=== PATIENT | female | born 1940 | race Caucasian/White ===

== ENCOUNTER → 2017-02-09 | Outpatient (CLI) | payer MEDICARE, BC ==
--- NOTE | 2017-02-11 06:05 | MRI ---
Procedure: MR LUMBAR SPINE WITHOUT IV CONTRAST Exam Date: 02/09/2017 12:00 AM CDT Ordering Provider: JOSE FRIEDMAN Clinical Indication: LOW BACK PAIN Comparison: March 26, 2014 Technique: Multiplanar, multisequence MR images of the lumbar spine were obtained. Findings: No evidence of vertebral body compression deformity or acute fracture. Stable moderate S-shaped scoliotic curvature. There is a dextroconvex apex at L1-L2 and levoconvex apex at L3-L4. Spinal cord terminates at the T12-L1 and is normal in signal morphology. Cauda equina separate appropriately. The spinal canal is congenitally widened secondary to scoliotic curvature. The pedicles are markedly developmentally thinned. T12-L1: Broad-based disc bulge without high-grade foraminal or spinal canal stenosis. L1-L2: Broad-based disc bulge asymmetric to the left. Left greater than right facet arthrosis. No high-grade spinal canal or foraminal stenosis. L2-L3: Broad-based disc bulge with marked facet arthrosis and ligamentum flavum hypertrophy. There is overall moderate spinal canal stenosis and bilateral subarticular recess stenosis. Severe left and mild right neural foraminal stenosis. L3-L4: Degenerative anterolisthesis secondary to facet arthrosis. Severe right and moderate left facet arthrosis and ligamentum flavum buckling. Broad-based disc bulge and disc uncovering results in mild to moderate spinal canal stenosis and subarticular recess stenosis. There is moderate right and mild left neural foraminal stenosis. L4-L5: Advanced facet arthrosis with prior decompressive laminectomy posterior osseous fusion at this level. Spinal canal is decompressed. The facet joints demonstrate moderate facet arthrosis at there also may be prior fusion. No spinal canal or foraminal stenosis. L5-S1: Prior decompressive laminectomy with patency of the spinal canal. No foraminal stenosis. No disc bulges or significant facet arthrosis. Prevertebral and paravertebral soft tissues are unremarkable. Impression: Multilevel/multifactorial lumbar spondylosis with moderate scoliotic curvature. There is multilevel foraminal stenosis with moderate spinal canal stenosis at L2-L3 and [id number] spinal canal stenosis at L3-4. See full discussion above. Findings have overall progressed predominantly at L2-L3 and L3-L4. Scoliotic curvature is also worsened. Electronically signed by: Jonathan Craig MD 02/11/2017 6:04 AM CDT
== END ==
LOC: MRI 13:51
PROVIDERS: ATTEND Family Medicine
DX: M47.896 Other spondylosis, lumbar region (principal)

== ENCOUNTER → 2017-02-17 | Outpatient (CLI) | payer MEDICARE, BC | END | disposition home or self-care (01) | LOC: RESP 14:11 | PROVIDERS: ATTEND Psychiatry & Neurology Neurology | DX: G70.00 Myasthenia gravis without (acute) exacerbation (principal); R06.00 Dyspnea, unspecified ==

== ENCOUNTER → 2017-02-23 | Outpatient (CLI) | payer MEDICARE, BC ==
--- NOTE | 2017-02-23 12:58 | MRI ---
EXAM DESCRIPTION: Cervical Spine MRI. CLINICAL HISTORY: SPONDYLOSIS COMPARISON: MRI scan cervical spine 03/26/2014. TECHNIQUE: Multiplanar MRI, multiple sequences, non-contrast High-field. FINDINGS: C2-3: Disc desiccation. Disc space preserved. Tiny posterior disc bulge not abutting the cord. Moderate canal narrowing. Bilateral foramina are patent. Facets normal. C3-4: Disc desiccation and moderate disc space loss. Grade 1 retrolisthesis. Posterior endplate disc spur complex abutting the cord. Right neuroforamen patent. Uncinate spur on the left with mild to moderate narrowing. Moderate canal narrowing. Hypertrophic changes in the left facet. C4-5: Disc desiccation and moderate disc space loss. Anterior Modic type II endplate reactive changes. Posterior disc spur complex abutting the cord with moderate canal narrowing. Uncinate spur on the right with mild to moderate uncinate spur and facet spur on the left with severe neural foraminal narrowing or stenosis. Right facet normal. No cord impingement. C5-6: Disc desiccation and minimal disc space loss. Minimal posterior bulge. Anterior endplate ridging. Bilateral uncinate spurs with mild neural foraminal narrowing. Mild canal narrowing. Normal facets. C6-7: Disc degeneration and moderate disc space loss. Anterior endplate ridging with anterior Modic type II endplate reactive changes. Posterior broad-based disc spur complex almost abutting the cord. Bilateral mild neural foraminal narrowing. Normal facets. C7-T1: Minimal disc desiccation. Disc space maintained. Left uncinate spur and mild neural foraminal narrowing. Right neuroforamen is patent. Hypertrophy of the right facet with normal left facet. Trace anterolisthesis. T1-2: Minimal disc desiccation. Trace anterolisthesis. Minimal hypertrophy of the right facet with narrowing of the neural foramen. Normal left facet and neural foramen is patent. No significant disc bulge or canal narrowing. No cord compression or cord edema. Spine is normally lordotic. Atlantoaxial joint is minimally enlarged with arthrosis. Base of the cerebellar tonsils is above the foramen magnum. Paravertebral soft tissues are unremarkable. Vertebral bodies are not compressed at any level. Normal marrow signal in the remaining vertebral bodies and the posterior elements. IMPRESSION: 1. Facet spurring and uncinate spur encroaching on the left neural foramen at C4-5 with severe neural foraminal narrowing or stenosis. Correlate for left C5 radiculopathy. This has progressed since the prior study. 2. Disc and endplate spondylosis from C3-4 through C5-6 is stable since the prior study. Electronically signed by: Zechariah Musa MD 02/23/2017 12:56 PM CDT
== END | disposition home or self-care (01) ==
LOC: MRI 09:58
PROVIDERS: ATTEND Psychiatry & Neurology Neurology
DX: M47.892 Other spondylosis, cervical region (principal)

== ENCOUNTER → 2017-10-11 | Outpatient (CLI) | payer MEDICARE | LOC: GMAJ 13:19 | PROVIDERS: ATTEND Family Medicine | DX: E03.9 Hypothyroidism, unspecified (principal) ==

== ENCOUNTER → 2019-07-30 | Outpatient (CLI) | payer MEDICARE | LOC: GMAJ 10:46 | PROVIDERS: ATTEND Family Medicine | DX: I10 Essential (primary) hypertension (principal) ==

== ENCOUNTER → 2020-08-18 | Outpatient (CLI) | payer MEDICARE | LOC: GMAJ 11:40 | PROVIDERS: ATTEND Family Medicine | DX: E03.9 Hypothyroidism, unspecified (principal); I10 Essential (primary) hypertension ==